=== PATIENT | male | born 1970 | race Native Hawaiian/Other Pacific Islander ===

== ENCOUNTER 2016-05-02 09:27 | Outpatient (CLI) | payer BC, OTHER ==
[~2016-05-02] VITALS: Ht 180.3 cm; Wt 147.0 kg
[2016-05-02 10:05] VITALS: BP 140/76; TEMP 98.1
[2016-05-02 10:53] LABS: PLATELET COUNT 178 K/uL (142-355)
[2016-05-02 11:01] LABS: POTASSIUM 4.3 mmol/L (3.6-5.2); SODIUM 131 mmol/L (136-145)
== END 2016-05-02 19:21 | disposition home or self-care (01) ==
LOC: RAD 09:27 → INF 09:27
PROVIDERS: Nurse Practitioner Family
DX: L03.211 Cellulitis of face (principal)
CPT/HCPCS: 36415; 80053; 85027; 96365; J3370

== ENCOUNTER 2016-05-03 08:34 | Outpatient (CLI) | payer BC, OTHER ==
[~2016-05-03] VITALS: Ht 180.3 cm; Wt 147.0 kg
[2016-05-03 08:40] VITALS: BP 141/75; TEMP 98.7
== END 2016-05-03 19:28 | disposition home or self-care (01) ==
LOC: INF 08:34
DX: L03.211 Cellulitis of face (principal)
CPT/HCPCS: 96365; J3370

== ENCOUNTER 2016-05-04 08:05 | Outpatient (CLI) | payer BC, OTHER ==
[~2016-05-04] VITALS: Ht 180.3 cm; Wt 147.0 kg
[2016-05-04 08:05] VITALS: BP 136/76; TEMP 98.8
== END 2016-05-04 19:00 | disposition home or self-care (01) ==
LOC: INF 08:05
DX: L03.211 Cellulitis of face (principal)
CPT/HCPCS: 96365; J3370

== ENCOUNTER 2016-05-05 08:01 | Outpatient (CLI) | payer BC, OTHER ==
[~2016-05-05] VITALS: Ht 180.3 cm; Wt 147.0 kg
[2016-05-05 08:05] VITALS: BP 136/80; TEMP 98.3
== END 2016-05-05 18:56 | disposition home or self-care (01) ==
LOC: INF 08:01
DX: L03.211 Cellulitis of face (principal)
CPT/HCPCS: 36415; 80202; 96365; 96366; J3370

== ENCOUNTER 2016-05-06 08:29 | Outpatient (CLI) | payer BC, OTHER ==
[~2016-05-06] VITALS: Ht 180.3 cm; Wt 147.0 kg
[2016-05-06 08:35] VITALS: BP 137/83; TEMP 98.8
== END 2016-05-07 01:57 | disposition home or self-care (01) ==
LOC: INF 08:29
DX: L03.211 Cellulitis of face (principal)
CPT/HCPCS: 80202; 87070; 87077; 87185; 87186; 87205; 96365; 96366; J3370

== ENCOUNTER 2016-05-07 08:15 | Outpatient (CLI) | payer BC, OTHER ==
[~2016-05-07] VITALS: Ht 180.3 cm; Wt 147.0 kg
[2016-05-07 08:20] VITALS: BP 129/75; TEMP 98.7
[2016-05-07 11:05] VITALS: BP 122/74; TEMP 98.7
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
== END 2016-05-07 19:20 | disposition home or self-care (01) ==
LOC: INF 08:15
DX: L03.211 Cellulitis of face (principal)
CPT/HCPCS: 96365; 96366; J3370

== ENCOUNTER 2016-12-26 07:29 | Outpatient (CLI) | payer BC, OTHER ==
[~2016-12-26] VITALS: Ht 30.5 cm; Wt 0.5 kg
== END 2016-12-26 19:29 | disposition home or self-care (01) ==
LOC: NM 07:29
DX: R07.89 Other chest pain (principal)
CPT/HCPCS: A9500; J2785

== ENCOUNTER 2017-07-07 08:58 | Outpatient (CLI) | payer OTHER | END 2017-07-07 20:43 | disposition home or self-care (01) | LOC: RAD 08:58 | DX: M25.562 Pain in left knee (principal) ==

== ENCOUNTER 2017-10-20 10:43 | Outpatient (CLI) | payer OTHER ==
[2017-10-20 11:14] LABS: PLATELET COUNT 191 K/uL (142-355)
== END 2017-10-20 21:14 | disposition home or self-care (01) ==
LOC: LABW 10:43
PROVIDERS: Orthopaedic Surgery Sports Medicine
DX: Z01.818 Encounter for other preprocedural examination (principal); I10 Essential (primary) hypertension; E07.89 Other specified disorders of thyroid
CPT/HCPCS: 36415; 80048; 85027; 93005

== ENCOUNTER 2018-12-21 08:58 | Outpatient (CLI) | payer OTHER | END 2018-12-21 19:23 | disposition home or self-care (01) | LOC: RAD 08:58 | DX: M25.562 Pain in left knee (principal) ==

== ENCOUNTER 2018-12-31 08:06 | Outpatient (CLI) | payer OTHER | END 2018-12-31 23:27 | disposition home or self-care (01) | LOC: MRI 08:06 | DX: M25.562 Pain in left knee (principal) ==

== ENCOUNTER 2021-12-25 10:50 | Outpatient (CLI) | payer OTHER | END 2021-12-25 20:31 | disposition home or self-care (01) | LOC: US 10:50 | PROVIDERS: ATTEND Nurse Practitioner | DX: R42 Dizziness and giddiness (principal) ==

== ENCOUNTER 2022-04-12 11:57 | Outpatient (CLI) | payer OTHER | END 2022-04-12 19:58 | disposition home or self-care (01) | LOC: RAD 11:57 | PROVIDERS: ATTEND Nurse Practitioner Family | DX: M54.12 Radiculopathy, cervical region (principal) ==

== ENCOUNTER 2022-05-02 12:09 | Outpatient (CLI) | payer OTHER ==
[2022-05-02 12:51] LABS: POTASSIUM 4.3 mmol/L (3.6-5.2)
== END 2022-05-02 22:28 | disposition home or self-care (01) ==
LOC: LABW 12:09
PROVIDERS: ATTEND Nurse Practitioner Family
DX: S46.012D Strain of muscle(s) and tendon(s) of the rotator cuff of left shoulder, subsequent encounter (principal); Y92.89 Other specified places as the place of occurrence of the external cause
CPT/HCPCS: 36415; 80053; 82550; 82553; 84484; 93005

== ENCOUNTER 2022-05-17 08:32 | Outpatient (CLI) | payer OTHER | END 2022-05-17 19:28 | disposition home or self-care (01) | LOC: MRI 08:32 | PROVIDERS: ATTEND Nurse Practitioner Family | DX: M54.12 Radiculopathy, cervical region (principal) ==